=== PATIENT | female | born 1945 | race Caucasian/White ===

== ENCOUNTER 2018-12-06 08:25 | Inpatient (IN) ==
[2018-12-06] MEDS ORDERED: ONDANSETRON 4 MG/2 ML VIAL IV PRN (08:28)
[2018-12-06] MEDS ORDERED: MAGNESIUM SULF RIDER 4 GM in PREMIX 1 EACH IV PRN (08:28)
[2018-12-06] MEDS ORDERED: diphenhydrAMINE CAP 25 MG CAPSULE PO PRN (08:28)
[2018-12-06] MEDS ORDERED: MORPHINE 4 MG/1 ML VIAL IV PRN (08:28)
[2018-12-06] MEDS ORDERED: MAGNESIUM SULF RIDER 2 GM in PREMIX 1 EACH IV PRN ×3 (08:28→16:28)
[2018-12-06] MEDS ORDERED: ZALEPLON 5 MG CAPSULE PO PRN (08:28)
[2018-12-06] MEDS ORDERED: DOCUSATE SODIUM 100 MG CAPSULE PO PRN (08:28)
[2018-12-06] MEDS ORDERED: POTASSIUM CHLORIDE 20 MEQ TABLET PO PRN (08:28)
[2018-12-06] MEDS ORDERED: ACETAMINOPHEN 325 MG TABLET PO PRN (08:28)
[2018-12-06 09:59] LABS: Basophils % 0.3 % (0.0-0.8); Eosinophils # 0.1 10*3/uL (0.0-0.87); Eosinophils % 1.1 % (0.00-10.9); Hematocrit 33.6 VOL% (35.7-47.0); Hemoglobin 12.5 GM/DL (12.0-16.0); Immature Granulocytes % 0.4 %; Immature Granulocytes Absolute 0.03 #; Lymphocytes # 1.2 10*3/uL (1.4-4.0); Lymphocytes % 16.4 % (21.3-54.2); Mean Corpuscular HGB Conc 37.2 GM/DL (32-36); Mean Corpuscular Volume 98.8 FL (87-102); Mean Platelet Volume 10.1 FL (9.6-12.0); Monocytes % 5.7 % (1.7-12.7); Neutrophils % 76.1 % (38.7-73.9); Platelet Count 237 T/CUMM (130-400); Red Cell Distribution Width 15.4 % (9.3-17.3); White Blood Count 7.3 T/CUMM (4-12)
[2018-12-06 10:22] LABS: Albumin 3.8 G/DL (3.4-5.0); Bilirubin,Total 1.2 MG/DL (0.2-1.0); Calcium 9.3 MG/DL (8.5-10.1); Osmolality,Calculated 279.8 MOS/KG (273-304); Total Protein 7.5 G/DL (6.4-8.3)
[2018-12-06 10:23] LABS: Apearance,Urine Hazy (Clear); Bacteria,Urine Many /HPF (Few); Bilirubin,Urine Negative (Negative); Blood, Urine NEGATIVE (Negative); Glucose,Urine (UA) Negative (Negative); Hyaline Casts,Urine 7 /LPF (0-3); Ketones,Urine Negative (Negative); Mucus,Urine Occasional /LPF (Occasional); Nitrite,Urine Negative (Negative); Protein,Urine 30 MG/DL; RBC,Urine 3 /HPF (0-4); Squamous Epithelial Cell,Urine Occasional /HPF (0-10); Urine Color Yellow (Yellow); WBC,Urine 30 /HPF (0-6)
[2018-12-06 10:24] LABS: Urine Urobilinogen 0.2 EU/DL (0.2-1.0)
[2018-12-06 10:40] LABS: Risk Ratio 4.88; Thyroid Stimulating Hormone 2.1 uIU/ml (0.358-3.74); VLDL CHOLESTEROL 19.2 MG/DL
[2018-12-06] MEDS ORDERED: PROPRANOLOL LA 80 MG CAPSULE PO SCH (12:30)
[2018-12-06] MEDS ORDERED: TRIAMTERENE/HCTZ 37.5-25 MG CAPSULE PO SCH (12:30)
[2018-12-06] MEDS ORDERED: FUROSEMIDE 40 MG/4 ML VIAL IV ONE ×2 (12:30→23:55)
[2018-12-06] MEDS: dilTIAZem Drip 125 MG/125 ML PREMIX IV SCH (13:37)
[2018-12-06] MEDS: LEVOTHYROXINE 112 MCG TABLET PO SCH (13:40)
[2018-12-06] MEDS: ASPIRIN EC 325 MG TABLET PO SCH (14:10)
[2018-12-06] MEDS: PANTOPRAZOLE 40 MG TABLET PO SCH (14:10)
[2018-12-06] MEDS: SPIRONOLACTONE 25 MG TABLET PO SCH (14:11)
[2018-12-06] MEDS: carvediloL 12.5 MG TABLET PO SCH ×2 (14:11→20:41)
[2018-12-06] MEDS ORDERED: POTASSIUM CHLORIDE RIDER 10 MEQ in PREMIX 1 EACH IV PRN ×2 (14:52→16:28)
[2018-12-07 04:53] LABS: Basophils % 0.3 % (0.0-0.8); Eosinophils # 0.1 10*3/uL (0.0-0.87); Eosinophils % 1.2 % (0.00-10.9); Hematocrit 33.2 VOL% (35.7-47.0); Hemoglobin 11.3 GM/DL (12.0-16.0); Immature Granulocytes % 0.6 %; Immature Granulocytes Absolute 0.04 #; Lymphocytes # 0.9 10*3/uL (1.4-4.0); Lymphocytes % 13.7 % (21.3-54.2); Mean Corpuscular Volume 96.5 FL (87-102); Mean Platelet Volume 9.8 FL (9.6-12.0); Monocytes % 8.4 % (1.7-12.7); Neutrophils % 75.8 % (38.7-73.9); Platelet Count 210 T/CUMM (130-400); Red Blood Count 3.44 MC/CUMM (3.8-5.5); Red Cell Distribution Width 13.4 % (9.3-17.3); White Blood Count 6.6 T/CUMM (4-12)
[2018-12-07 05:13] LABS: Albumin 3.5 G/DL (3.4-5.0); Bilirubin,Total 1.4 MG/DL (0.2-1.0); Calcium 9.4 MG/DL (8.5-10.1); Osmolality,Calculated 287.3 MOS/KG (273-304); Total Protein 6.9 G/DL (6.4-8.3)
[2018-12-07] MEDS: LEVOTHYROXINE 112 MCG TABLET PO SCH (06:16)
[2018-12-07] MEDS: dilTIAZem Drip 125 MG/125 ML PREMIX IV SCH (07:11)
[2018-12-07] MEDS: SPIRONOLACTONE 25 MG TABLET PO SCH (08:39)
[2018-12-07] MEDS: carvediloL 12.5 MG TABLET PO SCH (08:40)
[2018-12-07] MEDS: PANTOPRAZOLE 40 MG TABLET PO SCH (08:40)
[2018-12-07] MEDS: ASPIRIN EC 325 MG TABLET PO SCH (08:41)
[2018-12-07] MEDS ORDERED: HEPARIN/NACL 0.9% 2 UNITS/ML 1,000 ML IV ONE (08:59)
[2018-12-07] MEDS ORDERED: DIAZEPAM 5 MG TABLET PO ONE (09:00)
[2018-12-07] MEDS ORDERED: FUROSEMIDE 40 MG TABLET PO SCH (09:00)
[2018-12-07] MEDS ORDERED: LOSARTAN 25 MG TABLET PO SCH (09:00)
[2018-12-07] MEDS ORDERED: diphenhydrAMINE CAP 25 MG CAPSULE PO ONE (09:00)
[2018-12-07] MEDS ORDERED: NITROGLYCERIN DRIP 50 MG/250 ML BOTTLE IV ONE (09:10)
[2018-12-07] MEDS ORDERED: LIDOCAINE 1% 20 ML VIAL ONE (09:10)
[2018-12-07] MEDS ORDERED: VERAPAMIL 5 MG/2 ML VIAL ONE (09:11)
[2018-12-07] MEDS ORDERED: MIDAZOLAM 2 MG/2 ML VIAL ONE (09:13)
[2018-12-07] MEDS ORDERED: fentaNYL 100 MCG/2 ML VIAL ONE (09:13)
[2018-12-07] MEDS ORDERED: ENOXAPARIN 60 MG/0.6 ML SYRINGE ONE (09:21)
[2018-12-07] MEDS ORDERED: DILTIAZEM CD 120 MG CAPSULE PO ONE (09:55)
[2018-12-07] MEDS ORDERED: FUROSEMIDE 40 MG/4 ML VIAL IV ONE (09:57)
[2018-12-07] MEDS: POTASSIUM CHLORIDE 20 MEQ TABLET PO SCH (10:37)
[2018-12-07] MEDS: RIVAROXABAN 20 MG TABLET PO SCH (16:50)
[2018-12-07] MEDS: FUROSEMIDE 40 MG/4 ML VIAL IV SCH (16:50)
[2018-12-07] MEDS ORDERED: DILTIAZEM 60 MG TABLET PO SCH (21:00)
[2018-12-08] MEDS: carvediloL 12.5 MG TABLET PO SCH (03:44)
[2018-12-08 06:05] LABS: Basophils % 0.2 % (0.0-0.8); Eosinophils # 0.1 10*3/uL (0.0-0.87); Eosinophils % 1.6 % (0.00-10.9); Hemoglobin 11.8 GM/DL (12.0-16.0); Immature Granulocytes % 0.3 %; Immature Granulocytes Absolute 0.02 #; Lymphocytes # 1.2 10*3/uL (1.4-4.0); Lymphocytes % 18.8 % (21.3-54.2); Mean Corpuscular HGB Conc 34.7 GM/DL (32-36); Mean Platelet Volume 10.8 FL (9.6-12.0); Monocytes % 8.1 % (1.7-12.7); Platelet Count 234 T/CUMM (130-400); Red Blood Count 3.58 MC/CUMM (3.8-5.5); Red Cell Distribution Width 13.3 % (9.3-17.3); White Blood Count 6.2 T/CUMM (4-12)
[2018-12-08 06:18] LABS: Calcium 9.1 MG/DL (8.5-10.1); Osmolality,Calculated 280.7 MOS/KG (273-304)
[2018-12-08] MEDS: LEVOTHYROXINE 112 MCG TABLET PO SCH (06:30)
[2018-12-08] MEDS: FUROSEMIDE 40 MG/4 ML VIAL IV SCH ×2 (09:01→16:55)
[2018-12-08] MEDS: carvediloL 25 MG TABLET PO SCH ×2 (10:25→16:55)
[2018-12-08] MEDS: SPIRONOLACTONE 25 MG TABLET PO SCH (10:26)
[2018-12-08] MEDS: PANTOPRAZOLE 40 MG TABLET PO SCH (10:27)
[2018-12-08] MEDS: POTASSIUM CHLORIDE 20 MEQ TABLET PO SCH (10:28)
[2018-12-08] MEDS: DILTIAZEM CD 240 MG CAPSULE PO SCH (10:52)
[2018-12-08] MEDS: CIPROFLOXACIN 500 MG TABLET PO SCH ×2 (13:07→21:08)
[2018-12-08] MEDS: ASPIRIN EC 81 MG TABLET PO SCH (13:07)
[2018-12-08] MEDS: RIVAROXABAN 20 MG TABLET PO SCH (16:55)
[2018-12-08] MEDS ORDERED: DILTIAZEM CD 120 MG CAPSULE PO ONE (20:09)
[2018-12-09 05:41] LABS: Basophils % 0.2 % (0.0-0.8); Eosinophils # 0.1 10*3/uL (0.0-0.87); Eosinophils % 2.3 % (0.00-10.9); Hematocrit 33.6 VOL% (35.7-47.0); Hemoglobin 11.9 GM/DL (12.0-16.0); Immature Granulocytes % 0.5 %; Immature Granulocytes Absolute 0.03 #; Lymphocytes # 1.1 10*3/uL (1.4-4.0); Mean Corpuscular HGB Conc 35.4 GM/DL (32-36); Mean Corpuscular Volume 95.2 FL (87-102); Mean Platelet Volume 9.9 FL (9.6-12.0); Platelet Count 247 T/CUMM (130-400); Red Blood Count 3.53 MC/CUMM (3.8-5.5); Red Cell Distribution Width 13.7 % (9.3-17.3); White Blood Count 5.6 T/CUMM (4-12)
[2018-12-09 06:07] LABS: Calcium 9.4 MG/DL (8.5-10.1); Osmolality,Calculated 281.7 MOS/KG (273-304)
[2018-12-09] MEDS: LEVOTHYROXINE 112 MCG TABLET PO SCH (06:33)
[2018-12-09] MEDS: FUROSEMIDE 40 MG/4 ML VIAL IV SCH (08:37)
[2018-12-09] MEDS: ASPIRIN EC 81 MG TABLET PO SCH (09:42)
[2018-12-09] MEDS: PANTOPRAZOLE 40 MG TABLET PO SCH (09:43)
[2018-12-09] MEDS: SPIRONOLACTONE 25 MG TABLET PO SCH (09:43)
[2018-12-09] MEDS: DILTIAZEM CD 240 MG CAPSULE PO SCH (09:43)
[2018-12-09] MEDS: carvediloL 25 MG TABLET PO SCH (09:43)
[2018-12-09] MEDS: POTASSIUM CHLORIDE 20 MEQ TABLET PO SCH (09:43)
[2018-12-09] MEDS: CIPROFLOXACIN 500 MG TABLET PO SCH (09:44)
[2018-12-09 11:11] VITALS: BP 100/66
[2018-12-09] MEDS ORDERED: POTASSIUM CHLORIDE 20 MEQ TABLET PO ONE (12:17)
[2018-12-09] MEDS ORDERED: MAGNESIUM SULF RIDER 2 GM in PREMIX 1 EACH IV ONE (12:17)
[2018-12-10] MEDS ORDERED: FUROSEMIDE 40 MG TABLET PO SCH (09:00)
== END 2018-12-09 14:59 | disposition home or self-care (01) | DRG 286 ==
LOC: N.TELEN 08:52 → INTOOBSV 08:52
PROVIDERS: ADMIT Internal Medicine Cardiovascular Disease; ATTEND Internal Medicine Cardiovascular Disease